=== PATIENT | male | born 1970 | race Caucasian/White ===

== ENCOUNTER 2018-08-17 04:38 | Emergency (ER) | payer BC ==
[2018-08-17 05:00] VITALS: BP 111/76; PULSE 76; RESP 20; TEMP 98.4
--- NOTE | 2018-08-17 06:12 | CT ---
EXAM: CT Maxillofacial Without Intravenous Contrast CLINICAL HISTORY: ETOH, fall and hit nose. TECHNIQUE: Axial computed tomography images of the face without intravenous contrast. DLP 2040.5 mGy*cm. This CT exam was performed using one or more of the following dose reduction techniques: automated exposure control, adjustment of the mA and/or kV according to patient size, and/or use of iterative reconstruction technique. Coronal and sagittal reconstructions are performed COMPARISON: No relevant prior studies available. FINDINGS: Bones/joints: Comminuted nasal bone fracture, minimally displaced and deviated to the left. Soft tissues: Mild overlying soft tissue swelling. Orbits: Unremarkable. Sinuses: Small polyp versus retention cyst of anterior left maxillary sinus. No air-fluid levels. IMPRESSION: Comminuted nasal bone fracture, minimally displaced and deviated to the left.
--- NOTE | 2018-08-17 06:15 | CT ---
EXAM: CT Head Without Intravenous Contrast CLINICAL HISTORY: ITS.REASON CT Reason: Pain TECHNIQUE: Axial computed tomography images of the head/brain without intravenous contrast. DLP is 2040.5 mGy-cm. This CT exam was performed using one or more of the following dose reduction techniques: automated exposure control, adjustment of the mA and/or kV according to patient size, and/or use of iterative reconstruction technique. Coronal and sagittal reconstructions are performed COMPARISON: No relevant prior studies available. FINDINGS: Brain: Unremarkable. No hemorrhage. No significant white matter disease. No edema. Ventricles: Unremarkable. No ventriculomegaly. Bones/joints: Comminuted nasal bone fracture is detailed on facial CT from the same day. Soft tissues: Unremarkable. Sinuses: Unremarkable as visualized. No acute sinusitis. Mastoid air cells: Unremarkable as visualized. No mastoid effusion. IMPRESSION: No intracranial hemorrhage EXAM: CT Cervical Spine Without Intravenous Contrast CLINICAL HISTORY: ITS.REASON CT Reason: Pain TECHNIQUE: Axial computed tomography images of the cervical spine without intravenous contrast. DLP is 2040.5 mGy-cm. This CT exam was performed using one or more of the following dose reduction techniques: automated exposure control, adjustment of the mA and/or kV according to patient size, and/or use of iterative reconstruction technique. Coronal and sagittal reconstructions are performed COMPARISON: No relevant prior studies available. FINDINGS: Vertebrae: Unremarkable. No acute fracture. Discs/spinal canal/neural foramina: Mild degenerative disc disease, worse at C5-6. No spinal canal stenosis. Soft tissues: Unremarkable. IMPRESSION: No fracture or subluxation
[2018-08-17] MEDS ORDERED: DIPH,PERTUS(ACELL)TETVAC-LF 0.5 ML VIAL IM ONE (06:24)
--- NOTE | 2018-08-17 06:25 | ED ---
Fall HPI - General Chief Complaint: Fall Stated Complaint: Fall, facial injury, alcohol Time Seen by Provider: 08/17/18 05:15 Source: family Mode of arrival: ambulatory - History of Present Illness Initial Comments: Hawk is a 47-year-old gentleman who presents the emergency department today for evaluation of nose injury after fall home. Patient and state that he is currently on a ketogenic diet for weight loss. Patient does not usually drink liquor however due to being on this diet he had liquor rather than beer when they were at a social event earlier in the night. reports that her became very intoxicated more so than she has ever seen him. She states that they went home and were laying in bed when he decided to get out of bed he rolled over falling out of bed and striking his face on the nightstand. She noted that he had a bloody nose they applied direct pressure but due to the intoxication and head injury she decided to bring him to the ER for evaluation. Patient is awake alert oriented admits to being intoxicated but has no acute complaints. Patient is not on any antiplatelet or anticoagulant medications. - Related Data Allergies Allergy/AdvReac Type Severity Reaction Status Date / Time No Known Allergies Allergy Verified 08/17/18 05:00 Review of Systems ROS Statement: Those systems with pertinent positive or pertinent negative responses have been documented in the HPI. ROS Other: All systems not noted in ROS Statement are negative. Past Medical History Past Medical History: No Reported History History of Any Multi-Drug Resistant Organisms: None Reported Past Surgical History: Adenoidectomy Past Psychological History: No Psychological Hx Reported Smoking Status: Former smoker Past Alcohol Use History: Occasional Past Drug Use History: None Reported General Exam - General Exam Comments Initial Comments: Physical Exam GENERAL: Patient is well-developed and well-nourished. Patient is nontoxic and well-hydrated and is in no distress. HENT: Abrasion to nose with swelling of the nasal bridge and some deviation to the right TMs normal bilaterally no hemotympanum Vital signs, no raccoon eyes Dried blood in the naris, no septal hematoma EYES: PERRL, EOMI PULMONARY: Unlabored respirations. No audible rales rhonchi or wheezing was noted. CARDIOVASCULAR: There is a regular rate and rhythm without any murmurs gallops or rubs. ABDOMEN: Soft and nontender with normal bowel sounds. SKIN: Abrasion to nose is noted above : Deferred NEUROLOGIC: Patient is alert and oriented x3. Moving all extremities spontaneously, follows commands Speech is slurred consistent with alcohol intoxication MUSCULOSKELETAL: Normal extremities with adequate strength and full range of motion. No lower extremity swelling or edema. No calf tenderness. PSYCHIATRIC: Normal psychiatric evaluation. Limitations: no limitations Course Vital Signs 08/17/18 04:57 Temperature 98.4 F Pulse Rate 76 Respiratory 20 Rate Blood Pressure 111/76 O2 Sat by Pulse 96 Oximetry Medical Decision Making - Medical Decision Making The patient was seen and evaluated history is obtained from the patient as well as his . witnessed the patient roll out of bed his head on the nightstand, patient had a bloody nose which resolved prior to arrival. Patient is intoxicated. He did not have loss of consciousness. CT imaging was ordered CT revealed a nasal bone fracture, on reevaluation patient still does not have any bleeding from the nose, there is no obvious septal laceration or hematoma, patient are comfortable with plan for discharge home Patient and uncertain of his last tetanus vaccine agreeable to TDaP today Patient discharged home in 's care Disposition Clinical Impression: Alcohol intoxication, Nasal bones, closed fracture Disposition: HOME SELF-CARE Condition: Stable Instructions (If sedation given, give patient instructions): Nasal Fracture (ED) Is patient prescribed a controlled substance at d/c from ED?: No Referrals: Isra Osullivan MD [Primary Care Provider] - 1-2 days
== END 2018-08-17 06:52 | disposition home or self-care (01) ==
LOC: EC 04:38
DX: S02.2XXA Fracture of nasal bones, initial encounter for closed fracture (principal); F10.129 Alcohol abuse with intoxication, unspecified; Z23 Encounter for immunization; Z87.891 Personal history of nicotine dependence; W06.XXXA Fall from bed, initial encounter
CPT/HCPCS: 70450; 70486; 72125; 90471; 90715; 99283